=== PATIENT | male | born 1965 | race Caucasian/White ===

== ENCOUNTER 2017-03-27 02:45 | Outpatient (CLI) | payer OTHER ==
[2017-03-27 03:19] LABS: ALT (SGPT) 15 U/L (8-55); AST (SGOT) 27 U/L (5-34); Albumin 3.3 g/dL (3.5-5.0); Alkaline Phosphatase 154 U/L (40-150); Anion Gap 13 mmol/L (10-20); BUN (Urea Nitrogen) 13 mg/dL (8.4-25.7); Bilirubin, Total 2.2 mg/dL (0.2-1.2); Calc. Creatinine Clearance 0 mL/min (70-130); Calcium 9.3 mg/dL (7.8-10.44); Carbon Dioxide 23 mmol/L (22-29); Chloride 102 mmol/L (98-107); Estimated GFR-MDRD Greater than 90; Globulin 3.1 g/dL (2.4-3.5); Glucose 104 mg/dL (70-105); Potassium 4.1 mmol/L (3.5-5.1); Protein, Total 6.4 g/dL (6.0-8.3); Sodium 134 mmol/L (136-145)
[2017-03-27 03:23] LABS: Vancomycin, Trough 26.8 ug/mL
[2017-03-27 17:40] LABS: CRP (Inflammatory) 1.41 mg/dL (= or < 0.5)
== END 2017-03-27 02:46 | disposition home or self-care (01) ==
LOC: BURLABSP 02:45
PROVIDERS: ATTEND Clinical Nurse Specialist Medical-Surgical
DX: A49.02 Methicillin resistant Staphylococcus aureus infection, unspecified site (principal)
CPT/HCPCS: 80053; 80202; 86140